=== PATIENT | female | born 1955 | race Two or more races ===

== ENCOUNTER 2017-08-20 13:26 | Outpatient (CLI) | payer OTHER ==
[~2017-08-20 13:26] MED LIST: ADVAIR 2501 DISK W/1 IH; CAPOTEN50 MG PO; COUMADIN4 MG; COZAAR100 MG; FLOVENT DISKU100 MCG IH; GLIPIZIDE5 MG PO; GLUCOTROL10 MG PO; INTESTINEX680 MG PO; KLONOPIN1 MG/TAB PO; LANTUS100 U/ML SQ; LASIX20 MG PO; LEVAQUIN500 MG PO; LIPITOR20 MG PO; LISINOPRIL10 MG; MEDROLPACK PO; METFORMIN HCL500 M1 PO; METFORMIN HCL500 MG PO; PLAVIX75 MG PO; PNEU16DI2; PROAIR HFA8.5 GM IH; SYMBICORT 16010.2 GM IH; SYNTHROID75 MCG PO; VENTOLIN HFA18 GM IH
== END 2017-08-20 13:31 | disposition home or self-care (01) ==
LOC: RAD 501 13:26
DX: M24.521 Contracture, right elbow (principal)

== ENCOUNTER → 2017-12-07 | Outpatient (CLI) | payer OTHER | END | disposition home or self-care (01) | LOC: SONOGRAMA 11:52 | DX: E04.2 Nontoxic multinodular goiter (principal) ==

== ENCOUNTER 2018-02-19 12:12 | Outpatient (CLI) | payer OTHER | END 2018-02-19 12:25 | disposition home or self-care (01) | LOC: RAD 501 12:12 | DX: M15.0 Primary generalized (osteo)arthritis (principal) ==

== ENCOUNTER 2018-06-14 09:19 | Outpatient (CLI) | payer OTHER ==
[~2018-06-14] VITALS: Ht 152.4 cm; Wt 79.8 kg
== END 2018-06-14 09:40 | disposition home or self-care (01) ==
LOC: OFIC 805 09:19
DX: J33.8 Other polyp of sinus (principal); J31.0 Chronic rhinitis; J32.8 Other chronic sinusitis; J34.2 Deviated nasal septum; H90.3 Sensorineural hearing loss, bilateral; H61.23 Impacted cerumen, bilateral

== ENCOUNTER 2018-06-25 19:13 | Inpatient (IN) | payer OTHER ==
[~2018-06-25] VITALS: Ht 149.9 cm; Wt 74.4 kg
[2018-07-01] MEDS ORDERED: QVAR REDIHALE10.6 G1 IH (13:46)
[2018-07-01] MEDS ORDERED: PROVENTIL HFA6.7 GM IH (13:47)
[2018-07-01] MEDS ORDERED: MEDROL4 MG PO (13:49)
[2018-07-01] MEDS ORDERED: ESTAZOLAM2 MG PO (13:53)
== END 2018-07-01 14:09 | disposition home or self-care (01) | DRG 202 ==
LOC: ER 19:13 → SEC-K 06-26 11:00 → MEDJ 06-26 11:00
PROVIDERS: ADMIT Internal Medicine
PROC: 4A033R1 Measurement of Arterial Saturation, Peripheral, Percutaneous Approach (ICD-10-PCS; principal; 2018-06-26)
PROC: 4A033R1 Measurement of Arterial Saturation, Peripheral, Percutaneous Approach (ICD-10-PCS; 2018-06-26)
DX: J45.41 Moderate persistent asthma with (acute) exacerbation (principal); B37.1 Pulmonary candidiasis; J44.1 Chronic obstructive pulmonary disease with (acute) exacerbation; E11.65 Type 2 diabetes mellitus with hyperglycemia; E03.8 Other specified hypothyroidism

== ENCOUNTER → 2018-08-15 | Outpatient (CLI) | payer OTHER ==
[~2018-08-15] MED LIST changes: +ESTAZOLAM2 MG PO; +MEDROL4 MG PO; +PROVENTIL HFA6.7 GM IH; +QVAR REDIHALE10.6 G1 IH
== END | disposition home or self-care (01) ==
LOC: NUCLEAR 09:00
DX: M06.4 Inflammatory polyarthropathy (principal)
CPT/HCPCS: 78306; 78315; A9503

== ENCOUNTER → 2018-08-19 | Outpatient (CLI) | payer OTHER | END | disposition home or self-care (01) | LOC: TOM 10:38 | DX: J33.8 Other polyp of sinus (principal); J32.8 Other chronic sinusitis; J34.2 Deviated nasal septum ==

== ENCOUNTER 2018-08-23 09:13 | Outpatient (CLI) | payer OTHER ==
[~2018-08-23] VITALS: Ht 152.4 cm; Wt 79.8 kg
== END 2018-08-23 09:30 | disposition home or self-care (01) ==
LOC: OFIC 805 09:13
DX: J45.901 Unspecified asthma with (acute) exacerbation (principal); J31.0 Chronic rhinitis; J33.8 Other polyp of sinus

== ENCOUNTER 2018-09-24 15:08 | Inpatient (IN) | payer OTHER ==
[~2018-09-24] VITALS: Ht 149.9 cm; Wt 78.9 kg
[2018-10-01] MEDS ORDERED: BENZONATATE100 MG PO (16:27)
[2018-10-01] MEDS ORDERED: TUSSIN DM LIQU118 ML PO (16:28)
== END 2018-10-01 18:18 | disposition home or self-care (01) | DRG 202 ==
LOC: ER 15:08 → SEC-K 09-25 18:12 → MEDJ 09-25 18:12
PROVIDERS: ADMIT Internal Medicine
PROC: 3E0F7GC Introduction of Other Therapeutic Substance into Respiratory Tract, Via Natural or Artificial Opening (ICD-10-PCS; principal; 2018-09-25)
PROC: BB24ZZZ Computerized Tomography (CT Scan) of Bilateral Lungs (ICD-10-PCS; 2018-09-26)
DX: J45.42 Moderate persistent asthma with status asthmaticus (principal); J44.1 Chronic obstructive pulmonary disease with (acute) exacerbation; J98.11 Atelectasis

== ENCOUNTER 2018-10-20 12:50 | Emergency (ER) | payer OTHER ==
[~2018-10-20] VITALS: Ht 149.9 cm; Wt 78.0 kg
[~2018-10-20 12:50] MED LIST changes: +BENZONATATE100 MG PO; +TUSSIN DM LIQU118 ML PO
== END 2018-10-20 14:23 | disposition home or self-care (01) ==
LOC: ER 12:50
DX: S89.82XA Other specified injuries of left lower leg, initial encounter (principal); S89.81XA Other specified injuries of right lower leg, initial encounter; W18.09XA Striking against other object with subsequent fall, initial encounter; Y93.89 Activity, other specified; Y92.89 Other specified places as the place of occurrence of the external cause; Y99.8 Other external cause status

== ENCOUNTER → 2018-10-30 | Outpatient (CLI) | payer OTHER | END | disposition home or self-care (01) | LOC: NUCLEAR 06-24 08:30 | DX: I87.2 Venous insufficiency (chronic) (peripheral) (principal) ==

== ENCOUNTER → 2018-11-06 | Outpatient (CLI) | payer OTHER | END | disposition home or self-care (01) | LOC: MRI 09:59 | DX: S83.203A Other tear of unspecified meniscus, current injury, right knee, initial encounter (principal) | CPT/HCPCS: 73721 ==

== ENCOUNTER 2018-11-10 14:16 | Emergency (ER) | payer OTHER ==
[~2018-11-10] VITALS: Ht 149.9 cm; Wt 78.9 kg
== END 2018-11-10 17:29 | disposition home or self-care (01) ==
LOC: ER 14:16
DX: L03.115 Cellulitis of right lower limb (principal)

== ENCOUNTER 2019-04-02 14:52 | Inpatient (IN) | payer OTHER ==
[~2019-04-02] VITALS: Ht 149.9 cm; Wt 76.7 kg
[~2019-04-02 14:52] MED LIST changes: -COZAAR100 MG; +COZAAR100 MG PO
== END 2019-05-07 16:31 | DRG 470 ==
LOC: SURG 05-05 07:00 → O/R 05-05 07:05 → SURH 05-05 07:05 → SURG 05-05 10:00 → SURH 05-05 15:06
PROVIDERS: ADMIT Orthopaedic Surgery
PROC: 0SRC0J9 Replacement of Right Knee Joint with Synthetic Substitute, Cemented, Open Approach (ICD-10-PCS; principal; 2019-05-05 07:00)
DX: M17.11 Unilateral primary osteoarthritis, right knee (principal); D62 Acute posthemorrhagic anemia; E72.11 Homocystinuria; I10 Essential (primary) hypertension; E03.8 Other specified hypothyroidism; E11.9 Type 2 diabetes mellitus without complications; Z79.4 Long term (current) use of insulin

== ENCOUNTER 2019-04-09 10:57 | Outpatient (CLI) | payer OTHER ==
[~2019-04-09 10:57] MED LIST changes: +COZAAR100 MG; -COZAAR100 MG PO
== END 2019-04-09 10:59 | disposition home or self-care (01) ==
LOC: RAD 10:57
DX: R07.89 Other chest pain (principal)

== ENCOUNTER 2019-08-28 13:32 | Outpatient (CLI) | payer OTHER ==
[~2019-08-28 13:32] MED LIST changes: -COZAAR100 MG; +COZAAR100 MG PO
== END 2019-08-28 14:17 | disposition home or self-care (01) ==
LOC: RAD 13:32
DX: M25.561 Pain in right knee (principal); M25.562 Pain in left knee

== ENCOUNTER 2020-01-14 09:37 | Outpatient (CLI) | payer OTHER | END 2020-01-14 09:49 | disposition home or self-care (01) | LOC: MAMO-SONO 09:37 | PROVIDERS: ATTEND Internal Medicine | DX: Z12.31 Encounter for screening mammogram for malignant neoplasm of breast (principal); Z87.898 Personal history of other specified conditions; D24.1 Benign neoplasm of right breast; D24.2 Benign neoplasm of left breast ==

== ENCOUNTER → 2020-01-14 09:39 | Outpatient (CLI) | payer OTHER | END | disposition home or self-care (01) | LOC: LAB 09:39 | PROVIDERS: ATTEND Internal Medicine | DX: E03.8 Other specified hypothyroidism (principal); E11.69 Type 2 diabetes mellitus with other specified complication; E46 Unspecified protein-calorie malnutrition; E55.9 Vitamin D deficiency, unspecified; E78.49 Other hyperlipidemia; F39 Unspecified mood [affective] disorder; G63 Polyneuropathy in diseases classified elsewhere; I10 Essential (primary) hypertension; E11.40 Type 2 diabetes mellitus with diabetic neuropathy, unspecified; I73.89 Other specified peripheral vascular diseases ==

== ENCOUNTER 2020-04-26 10:23 | Outpatient (CLI) | payer OTHER | END 2020-04-26 10:33 | disposition home or self-care (01) | LOC: EKG 10:23 | PROVIDERS: ATTEND Internal Medicine | DX: Z01.811 Encounter for preprocedural respiratory examination (principal); I11.9 Hypertensive heart disease without heart failure; Z01.810 Encounter for preprocedural cardiovascular examination; J44.1 Chronic obstructive pulmonary disease with (acute) exacerbation ==

== ENCOUNTER 2020-08-26 12:37 | Outpatient (CLI) | payer OTHER | END 2020-08-26 12:43 | disposition HB | LOC: RAD 12:37 | PROVIDERS: ATTEND Internal Medicine | DX: M12.561 Traumatic arthropathy, right knee (principal); M65.861 Other synovitis and tenosynovitis, right lower leg ==

== ENCOUNTER 2020-12-07 10:21 | Outpatient (CLI) | payer OTHER | END 2020-12-07 10:22 | disposition home or self-care (01) | LOC: NUCLEAR 10:21 | PROVIDERS: ATTEND Internal Medicine | DX: I70.213 Atherosclerosis of native arteries of extremities with intermittent claudication, bilateral legs (principal) ==

== ENCOUNTER 2021-03-30 13:33 | Emergency (ER) | payer OTHER ==
[~2021-03-30] VITALS: Ht 144.8 cm; Wt 82.6 kg
[2021-03-30] MEDS ORDERED: SYNTHROID88 MCG PO (13:46)
[2021-03-30] MEDS ORDERED: FENOFIBRATE50 MG (13:59)
[2021-03-30] MEDS ORDERED: LIPITOR20 MG PO (13:59)
== END 2021-03-31 13:18 | disposition home or self-care (01) ==
LOC: ER 13:33
DX: L03.115 Cellulitis of right lower limb (principal); L03.116 Cellulitis of left lower limb; R51.9 Headache, unspecified; I82.493 Acute embolism and thrombosis of other specified deep vein of lower extremity, bilateral; Z20.822 Contact with and (suspected) exposure to COVID-19

== ENCOUNTER 2021-04-27 09:24 | Outpatient (CLI) | payer OTHER ==
[~2021-04-27 09:24] MED LIST changes: +FENOFIBRATE50 MG; +SYNTHROID88 MCG PO
== END 2021-04-27 09:34 | disposition home or self-care (01) ==
LOC: MRI 09:24
PROVIDERS: ATTEND Orthopaedic Surgery
DX: M17.12 Unilateral primary osteoarthritis, left knee (principal); M25.561 Pain in right knee; M25.562 Pain in left knee
CPT/HCPCS: 73721

== ENCOUNTER 2021-11-18 09:19 | Outpatient (CLI) | payer OTHER | END 2021-11-18 09:21 | disposition home or self-care (01) | LOC: RAD 09:19 | PROVIDERS: ATTEND Internal Medicine | DX: Z12.31 Encounter for screening mammogram for malignant neoplasm of breast (principal); N63.0 Unspecified lump in unspecified breast; M54.2 Cervicalgia; M54.50 Low back pain, unspecified; M54.6 Pain in thoracic spine ==

== ENCOUNTER 2021-11-29 14:49 | Emergency (ER) | payer OTHER ==
[~2021-11-29] VITALS: Ht 152.4 cm; Wt 95.3 kg
[2021-11-29] MEDS ORDERED: ATORVASTATIN CA40 MG (15:36)
[2021-11-29] MEDS ORDERED: CEPHALEXIN500 M1 PO (21:12)
== END 2021-11-29 21:16 | disposition home or self-care (01) ==
LOC: ER 14:49
DX: L03.116 Cellulitis of left lower limb (principal); L03.115 Cellulitis of right lower limb; M79.662 Pain in left lower leg; M79.661 Pain in right lower leg; Z88.6 Allergy status to analgesic agent; I10 Essential (primary) hypertension

== ENCOUNTER 2021-12-23 13:13 | Emergency (ER) | payer OTHER ==
[~2021-12-23] VITALS: Ht 149.9 cm; Wt 88.5 kg
[~2021-12-23 13:13] MED LIST changes: +ATORVASTATIN CA40 MG; +CEPHALEXIN500 M1 PO
== END 2021-12-23 18:00 | disposition home or self-care (01) ==
LOC: ER 13:13
DX: S20.212A Contusion of left front wall of thorax, initial encounter (principal); M62.838 Other muscle spasm; S80.02XA Contusion of left knee, initial encounter; S80.01XA Contusion of right knee, initial encounter; W18.30XA Fall on same level, unspecified, initial encounter; Y93.9 Activity, unspecified; Y92.019 Unspecified place in single-family (private) house as the place of occurrence of the external cause; Y99.9 Unspecified external cause status; I10 Essential (primary) hypertension; E03.9 Hypothyroidism, unspecified; E11.65 Type 2 diabetes mellitus with hyperglycemia; Z79.4 Long term (current) use of insulin

== ENCOUNTER 2022-01-09 07:07 | Emergency (ER) | payer OTHER ==
[~2022-01-09] VITALS: Ht 149.9 cm; Wt 85.7 kg
[2022-01-09] MEDS ORDERED: GLUMETZA500 MG PO (07:17)
== END 2022-01-09 10:03 | disposition home or self-care (01) ==
LOC: ER 07:07
DX: S91.129A Laceration with foreign body of unspecified toe(s) without damage to nail, initial encounter (principal); Z88.6 Allergy status to analgesic agent; Z86.711 Personal history of pulmonary embolism; I10 Essential (primary) hypertension; Z86.718 Personal history of other venous thrombosis and embolism

== ENCOUNTER 2022-06-15 14:28 | Outpatient (CLI) | payer OTHER ==
[~2022-06-15 14:28] MED LIST changes: +GLUMETZA500 MG PO
== END 2022-06-15 14:29 | disposition home or self-care (01) ==
LOC: RAD 14:28
PROVIDERS: ATTEND Internal Medicine
DX: S80.912A Unspecified superficial injury of left knee, initial encounter (principal)

== ENCOUNTER 2022-08-09 13:53 | Outpatient (CLI) | payer OTHER | END 2022-08-09 14:04 | disposition home or self-care (01) | LOC: MRI 13:53 | PROVIDERS: ATTEND Orthopaedic Surgery | DX: M25.562 Pain in left knee (principal) | CPT/HCPCS: 73718 ==

== ENCOUNTER 2022-09-27 16:07 | Emergency (ER) | payer OTHER ==
[~2022-09-27] VITALS: Ht 149.9 cm; Wt 79.4 kg
== END 2022-09-27 20:38 | disposition home or self-care (01) ==
LOC: ER 16:07
DX: M79.604 Pain in right leg (principal); L03.115 Cellulitis of right lower limb; Z88.6 Allergy status to analgesic agent; I10 Essential (primary) hypertension; E11.9 Type 2 diabetes mellitus without complications; Z79.4 Long term (current) use of insulin; Z79.84 Long term (current) use of oral hypoglycemic drugs

== ENCOUNTER 2023-01-23 17:38 | Emergency (ER) | payer OTHER ==
[~2023-01-23] VITALS: Ht 149.9 cm; Wt 74.8 kg
== END 2023-01-23 22:47 | disposition home or self-care (01) ==
LOC: ER 17:38
DX: R60.0 Localized edema (principal); I10 Essential (primary) hypertension; Z88.6 Allergy status to analgesic agent

== ENCOUNTER → 2023-03-15 | Emergency (ER) | payer OTHER ==
[~2023-03-15] VITALS: Ht 149.9 cm; Wt 79.4 kg
== END | disposition home or self-care (01) ==
LOC: ER 13:53
DX: J06.9 Acute upper respiratory infection, unspecified (principal); Z20.822 Contact with and (suspected) exposure to COVID-19; Z88.6 Allergy status to analgesic agent

== ENCOUNTER 2024-02-05 09:22 | Outpatient (CLI) | payer OTHER ==
[~2024-02-05 09:22] MED LIST changes: +GLIPIZIDE XL10 MG PO; +METFORMIN HCL1000 M2 PO; +SYNTHROID100 MCG PO; +WARFARIN SODIUM5 MG PO
== END 2024-02-05 09:24 | disposition home or self-care (01) ==
LOC: RAD 09:22
DX: Z01.811 Encounter for preprocedural respiratory examination (principal)

== ENCOUNTER 2024-02-05 10:14 | Outpatient (CLI) | payer OTHER | END 2024-02-05 10:23 | disposition home or self-care (01) | LOC: EKG 10:14 | PROVIDERS: ATTEND Ophthalmology | DX: I10 Essential (primary) hypertension (principal) ==

== ENCOUNTER 2024-03-31 11:45 | Outpatient (CLI) | payer OTHER | END 2024-03-31 11:46 | disposition home or self-care (01) | LOC: RAD 11:45 | PROVIDERS: ATTEND Physical Medicine & Rehabilitation | DX: M54.2 Cervicalgia (principal) ==

== ENCOUNTER 2024-06-30 08:42 | Outpatient (CLI) | payer OTHER | END 2024-06-30 08:43 | disposition home or self-care (01) | LOC: NUCLEAR 08:42 | PROVIDERS: ATTEND Internal Medicine | DX: I87.2 Venous insufficiency (chronic) (peripheral) (principal) ==

== ENCOUNTER 2024-10-11 11:39 | Inpatient (IN) | payer OTHER ==
[~2024-10-11] VITALS: Ht 149.9 cm; Wt 77.1 kg
--- NOTE | 2024-10-11 11:52 | NUR ---
SE RECIBE PACIENTE EN AMBULANCIA ALERTA, ORIENTADA EN COMPANIA DE [place]. REFIERE VENIR POR MOHANEOS, MARITZA, VERONIQUEOR DE OIDO.
[2024-10-11] MEDS ORDERED: TRAMADOL HCL 50 MG TABLET PO ONE (13:15)
[2024-10-11] MEDS ORDERED: METHYLPREDNISOLONE SOD SUCC 40 MG VIAL IV ONE (13:15)
[2024-10-11] MEDS ORDERED: CIPROFLOXACIN IN 5 % DEXTROSE 400 MG/200 ML PIGGYBAG IV ONE ×2 (13:15→13:30)
[2024-10-11] MEDS ORDERED: METHYLPREDNISOLONE SOD SUCC 40 MG VIAL ONE (13:30)
--- NOTE | 2024-10-11 14:04 | NUR ---
PACIENTE ALERTA Y ORIENTADA X3. SE EDUCA A PACIENTE SOBRE CANALIZACION Y ADMINISTRACION DE MEDICAMENTOS, REFIERE ENTENDER. SE EJECUTAN ORDENES BAJO MEDIDAS ASEPTICAS.
--- NOTE | 2024-10-11 16:36 | NUR ---
4:15PM: AL PACIENTE SER IVET DE GILMAR LA MISMA SE TROPEZA CON LA SILLA DE FAMILIAR Y SE FEDERICO AL SUELO. SE OBSERVA LA MISMA EN GRITOS POR EL DOLOR LA MISMA REFIERE DOLOR EN LA CADERA IZQUIERDA Y PIERNA. CON ASISTENCIA DE PARAMEDICOS QUE SE ENCONTRABAN DEJANDO PACIENTE. SE COLOCA LA MISMA EN MOSHE Y SE NOTIFICA A DR. ARNOLD Y EL MISMO ORDENA TRATAMIENTO MEDICO.
[2024-10-11] MEDS ORDERED: MORPHINE SULFATE 4 MG/ML CARTRIDGE IV ONE (17:30)
--- NOTE | 2024-10-11 17:59 | NUR ---
SE EDUCA A PTE SOBRE [place] MEDICO, SE DULCE MUESTRAS DE LABORATORIO UTILIZANDO MEDIDAS ASEPTICAS. SE COLOCA H/L DWAYNE DE EDEMA. SE ADMINISTRA MEDICAMENTO KWADWO ORDEN MEDICA. SE COLOCA LUA A PTE UTILIZANDO MEDIDAS ASEPTICAS Y ESTERILES.
[2024-10-11 18:44] LABS: URINE APPEARANCE Clear; URINE BILIRRUBIN Negative (NEGATIVE); URINE BLOOD Negative; URINE COLOR Yellow; URINE KETONE Negative (NEGATIVE); URINE LEUKOCYTE Negative; URINE NITRATE Negative; URINE PROTEIN 30 (NEGATIVE); URINE UROBILINOGEN 0.2 E.U./dl
[2024-10-11 18:50] LABS: URINE BACTERIA 7.3 uL (0.0-1933); URINE EPITHELIAL CELLS 3.4 uL (0.0-38.8); URINE RBC 21.6 uL (0.0-20.8); URINE WBC 3.3 uL (0.0-23.2)
[2024-10-11 19:00] LABS: URINE CAST 0.14 uL (0.0-1.40); URINE GLUCOSE >=1000 MG/DL (NEGATIVE)
[2024-10-11 19:08] LABS: BILIRUBIN TOTAL 0.96 mg/dL (0.3-1.2); CALCIUM 9.2 mg/dL (8.5-10.1); CREATININE SERUM 0.57 mg/dL (0.55-1.02); GFR 105.17; GLOBULINA 5.4 G/DL (2.4-3.5); POTASSIUM 3.94 mEq/L (3.5-5.1); TOTAL PROTEIN 9.4 gm/dL (6.4-8.2)
[2024-10-11 19:15] LABS: INR 6.42
[2024-10-11] MEDS ORDERED: DEXTROSE 50 % IN WATER 0.5 G/ML DISP.SYRIN IV PRN (19:30)
[2024-10-11] MEDS ORDERED: INSULIN LISPRO 1,000 UNIT/10 ML UNITS SUBCUTANEO PRN (19:30)
[2024-10-11] MEDS ORDERED: 0.9 % SODIUM CHLORIDE 1,000 ML IV SCH (19:30)
[2024-10-11] MEDS ORDERED: MORPHINE SULFATE 4 MG/ML CARTRIDGE IV PRN (19:30)
[2024-10-11 19:40] LABS: HEMOGLOBIN 15.3 g/dL (12.0-15.00); MEAN CELL VOLUME 85.9 fL (80.00-100.00); MEAN CORPUSCULAR HGB CONC 32.6 g/dl (32.0-36.0); PLATELET COUNT 200 K/uL (150-450); RED BLOOD COUNT 5.47 M/uL (4.00-6.00); RED CELL DISTRIBUTION WIDTH 14.6 % (11.5-14.5)
[2024-10-11] MEDS ORDERED: LOSARTAN POTASSIUM 100 MG TABLET PO SCH (19:56)
[2024-10-11] MEDS ORDERED: ATORVASTATIN CALCIUM 40 MG TABLET PO SCH (19:57)
[2024-10-11] MEDS ORDERED: CEFTRIAXONE SODIUM 1,000 MG in 0.9 % SODIUM CHLORIDE 100 ML IV SCH (21:00)
[2024-10-11] MEDS ORDERED: CEFTRIAXONE SODIUM 1,000 MG VIAL ONE (21:29)
[2024-10-11 21:43] VITALS: BP 160/82; O2SAT 95
[2024-10-11] MEDS ORDERED: ENALAPRILAT DIHYDRATE 1.25 MG/ML VIAL IV PRN (22:30)
[2024-10-12] VITALS: BP 89/55; O2SAT 95
[2024-10-12 00:38] VITALS: BP 109/61; O2SAT 97
[2024-10-12 01:54] VITALS: BP 147/81; O2SAT 94
[2024-10-12] MEDS ORDERED: LEVOTHYROXINE SODIUM 88 MCG TABLET PO SCH (06:00)
[2024-10-12 07:25] LABS: INR 4.33
[2024-10-12 07:31] LABS: ALBUMIN 2.9 gm/dL (3.4-5.0); BILIRUBIN TOTAL 0.63 mg/dL (0.3-1.2); CALCIUM 8.1 mg/dL (8.5-10.1); CREATININE SERUM 0.67 mg/dL (0.55-1.02); GFR 87.27; GLOBULINA 3.6 G/DL (2.4-3.5); POTASSIUM 4.07 mEq/L (3.5-5.1); TOTAL PROTEIN 6.5 gm/dL (6.4-8.2)
[2024-10-12 07:43] LABS: HEMATOCRIT 34.5 % (36.0-45.00); HEMOGLOBIN 11.5 g/dL (12.0-15.00); MEAN CELL VOLUME 83.9 fL (80.00-100.00); MEAN CORPUSCULAR HEMOGLOBIN 28.1 pg (27.00-32.0); MEAN CORPUSCULAR HGB CONC 33.5 g/dl (32.0-36.0); PLATELET COUNT 269 K/uL (150-450); RED BLOOD COUNT 4.11 M/uL (4.00-6.00); RED CELL DISTRIBUTION WIDTH 14.4 % (11.5-14.5)
[2024-10-12 08:00] VITALS: BP 141/71; O2SAT 99
[2024-10-12 08:19] LABS: PARTIAL THROMBOPLASTIN TIME 46.1 SECONDS (22.0-34.0)
[2024-10-12 08:22] LABS: PROTHROMBIN TIME 42.3 SECONDS (9.0-11.5)
[2024-10-12] MEDS ORDERED: PANTOPRAZOLE SODIUM 40 MG/VIAL VIAL IV SCH (09:00)
[2024-10-12] MEDS ORDERED: ENOXAPARIN SODIUM 40 MG/0.4 ML SYRINGE SUBCUTANEO SCH (09:00)
[2024-10-12] MEDS ORDERED: INSULIN GLARGINE,HUM.REC.ANLOG 1,000 UNITS/10 ML UNITS SUBCUTANEO STA (11:10)
[2024-10-12] MEDS ORDERED: INSULIN LISPRO 1,000 UNIT/10 ML UNITS SUBCUTANEO SCH (12:00)
[2024-10-12] MEDS ORDERED: 0.9 % SODIUM CHLORIDE 1,000 ML IV SCH (12:15)
[2024-10-12] MEDS ORDERED: CEFAZOLIN SODIUM 1,000 MG VIAL IV NR (12:15)
[2024-10-12] MEDS ORDERED: PROMETHAZINE HCL 50 MG/ML AMPUL IM PRN (12:15)
[2024-10-12] MEDS ORDERED: OxyCODONE HCL/APAP UD (PERCOCET) PO PRN (12:15)
[2024-10-12] MEDS ORDERED: MEPERIDINE HCL/PF 50 MG/ML VIAL IM PRN (12:15)
[2024-10-12 14:08] LABS: PH,URINE 5.5 (5.0-8.0); URINE APPEARANCE Clear; URINE BILIRRUBIN Negative (NEGATIVE); URINE BLOOD Large; URINE COLOR Yellow; URINE KETONE Trace (NEGATIVE); URINE LEUKOCYTE Negative; URINE NITRATE Negative; URINE PROTEIN Trace (NEGATIVE)
[2024-10-12 14:09] LABS: URINE BACTERIA 41.6 uL (0.0-1933); URINE EPITHELIAL CELLS 17.8 uL (0.0-38.8); URINE RBC 312.7 uL (0.0-20.8); URINE WBC 23.8 uL (0.0-23.2)
[2024-10-12 14:33] LABS: INR 4.35; PARTIAL THROMBOPLASTIN TIME 35.6 SECONDS (22.0-34.0)
[2024-10-12 14:39] LABS: PROTHROMBIN TIME 42.5 SECONDS (9.0-11.5)
[2024-10-12 14:41] LABS: URINE CAST 0.44 uL (0.0-1.40)
[2024-10-12 14:42] LABS: URINE GLUCOSE >=1000 MG/DL (NEGATIVE)
[2024-10-12 14:49] LABS: URINE EPITHELIAL CELLS 0-4 /HPF
[2024-10-12 15:00] LABS: CALCIUM 8.1 mg/dL (8.5-10.1); MAGNESIUM 1.7 mg/dL (1.8-2.4); PHOSPHOROUS 3.6 mg/dL (2.5-4.9)
[2024-10-12] MEDS ORDERED: RINGERS SOLUTION,LACTATED 1,000 ML IV SCH (15:45)
[2024-10-12 16:00] VITALS: BP 109/59; O2SAT 99
[2024-10-12] MEDS ORDERED: MAGNESIUM SULFATE IN WATER 50 ML IV NR (16:30)
[2024-10-12] MEDS ORDERED: CEFEPIME HCL 2,000 MG in 0.9 % SODIUM CHLORIDE 100 ML IV SCH (17:00)
[2024-10-12] MEDS ORDERED: AMINO ACIDS 1 EACH TABLET PO SCH (17:00)
[2024-10-12] MEDS ORDERED: IRON FUM,PS/FOLIC/BCOMP,C NO.9 1 CAP CAPSULE PO SCH (17:00)
[2024-10-13] VITALS: BP 134/61; O2SAT 95
[2024-10-13 08:00] VITALS: BP 164/69; O2SAT 99
[2024-10-13 08:08] LABS: INR 3.12
[2024-10-13 08:34] LABS: PARTIAL THROMBOPLASTIN TIME 37.6 SECONDS (22.0-34.0)
[2024-10-13] MEDS ORDERED: ENOXAPARIN SODIUM 80 MG/0.8 ML SYRINGE SUBCUTANEO SCH (09:00)
[2024-10-13] MEDS ORDERED: INSULIN GLARGINE,HUM.REC.ANLOG 1,000 UNITS/10 ML UNITS SUBCUTANEO SCH (09:00)
[2024-10-13 09:29] LABS: PROTHROMBIN TIME 31.3 SECONDS (9.0-11.5)
[2024-10-13] MEDS ORDERED: METHYLPREDNISOLONE SOD SUCC 40 MG VIAL ONE (09:45)
[2024-10-13] MEDS ORDERED: DIPHENHYDRAMINE HCL 50 MG/ML VIAL 1ML ONE (09:47)
[2024-10-13] MEDS ORDERED: PHYTONADIONE 10 MG/ML AMPUL IV NR (13:00)
[2024-10-13] MEDS ORDERED: AMLODIPINE BESYLATE 5 MG TABLET PO SCH (17:00)
[2024-10-13] MEDS ORDERED: GABAPENTIN 300 MG CAPSULE PO SCH (17:00)
[2024-10-13 17:41] VITALS: BP 176/79; O2SAT 94
[2024-10-13] MEDS ORDERED: PHYTONADIONE 1 MG/0.5 ML AMPUL IV NR (18:30)
[2024-10-13] MEDS ORDERED: CIPROFLOXACIN HCL 0.175 MG/DR DROPS OTIC SCH (21:00)
[2024-10-13 23:55] VITALS: BP 139/65; O2SAT 95
[2024-10-14 08:00] VITALS: BP 130/74; O2SAT 99
[2024-10-14 11:34] LABS: HEMATOCRIT 31.8 % (36.0-45.00); HEMOGLOBIN 10.5 g/dL (12.0-15.00); MEAN CELL VOLUME 85.4 fL (80.00-100.00); MEAN CORPUSCULAR HEMOGLOBIN 28.2 pg (27.00-32.0); PLATELET COUNT 220 K/uL (150-450); RED BLOOD COUNT 3.72 M/uL (4.00-6.00); RED CELL DISTRIBUTION WIDTH 14.4 % (11.5-14.5)
[2024-10-14 11:56] LABS: INR 1.04; PARTIAL THROMBOPLASTIN TIME 25.5 SECONDS (22.0-34.0); PROTHROMBIN TIME 11.3 SECONDS (9.0-11.5)
[2024-10-14 12:53] LABS: ALBUMIN 3.3 gm/dL (3.4-5.0); BILIRUBIN TOTAL 0.96 mg/dL (0.3-1.2); CALCIUM 8.8 mg/dL (8.5-10.1); CREATININE SERUM 0.46 mg/dL (0.55-1.02); GFR 134.69; GLOBULINA 4.3 G/DL (2.4-3.5); PHOSPHOROUS 2.2 mg/dL (2.5-4.9); POTASSIUM 4.22 mEq/L (3.5-5.1); TOTAL PROTEIN 7.6 gm/dL (6.4-8.2)
[2024-10-14 12:59] LABS: MAGNESIUM 2.3 mg/dL (1.8-2.4)
[2024-10-14] MEDS ORDERED: TRANEXAMIC ACID 100MG/1ML (1000MG) AMPUL IV ONE ×3 (15:53→16:45)
[2024-10-14] MEDS ORDERED: POVIDONE-IODINE 118 ML BOTT TOP ONE (15:53)
[2024-10-14] MEDS ORDERED: ENALAPRILAT DIHYDRATE 1.25 MG/ML VIAL IV ONE ×3 (16:49→17:00)
[2024-10-14] MEDS ORDERED: hydrALAZINE HCL 20 MG VIAL ONE (17:26)
[2024-10-14] MEDS ORDERED: SUGAMMADEX SODIUM 200 MG/2 ML VIAL IV ONE ×2 (19:33→20:30)
[2024-10-14] MEDS ORDERED: MORPHINE SULFATE 4 MG/ML VIAL IV ONE (20:50)
[2024-10-14] MEDS ORDERED: OxyCODONE HCL 5 MG TABLET (ROXICODONE) PO PRN (21:15)
[2024-10-14] MEDS ORDERED: MORPHINE SULFATE 4 MG/ML CARTRIDGE IV PRN (21:15)
[2024-10-14] MEDS ORDERED: ONDANSETRON HCL 2 MG/ML VIAL IV PRN (21:15)
[2024-10-14] MEDS ORDERED: SODIUM CHLORIDE 0.45 % 1,000 ML IV SCH (21:15)
[2024-10-14] MEDS ORDERED: INSULIN LISPRO 1,000 UNIT/10 ML UNITS SUBCUTANEO ONE (21:17)
[2024-10-15] VITALS: BP 98/62; O2SAT 95
[2024-10-15] MEDS ORDERED: ACETAMINOPHEN 500 MG GEL..CAP PO SCH
[2024-10-15] MEDS ORDERED: GABAPENTIN 300 MG CAPSULE PO SCH (01:00)
[2024-10-15] MEDS ORDERED: CEFAZOLIN SODIUM 1,000 MG VIAL IV SCH (01:00)
[2024-10-15 07:40] LABS: MEAN CELL VOLUME 84.7 fL (80.00-100.00); MEAN CORPUSCULAR HGB CONC 34.7 g/dl (32.0-36.0); PLATELET COUNT 283 K/uL (150-450); RED BLOOD COUNT 2.83 M/uL (4.00-6.00); RED CELL DISTRIBUTION WIDTH 14.6 % (11.5-14.5)
[2024-10-15 07:43] LABS: HEMOGLOBIN 8.3 g/dL (12.0-15.00); MEAN CORPUSCULAR HEMOGLOBIN 29.3 pg (27.00-32.0)
[2024-10-15] MEDS ORDERED: SENNOSIDES 1 TAB TABLET PO SCH (09:00)
[2024-10-15] MEDS ORDERED: APIXABAN 2.5 MG TABLET PO SCH (09:00)
[2024-10-15 10:14] VITALS: BP 109/54; O2SAT 98
[2024-10-15 17:22] VITALS: BP 106/55; O2SAT 97
[2024-10-16 00:57] VITALS: BP 116/67; O2SAT 94
[2024-10-16] MEDS ORDERED: IRON FUM,PS/FOLIC ACID/VITC/B3 1 CAP CAPSULE PO SCH (09:00)
[2024-10-16] MEDS ORDERED: PANTOPRAZOLE SODIUM 40 MG TABLET.DR PO SCH (09:00)
[2024-10-16] MEDS ORDERED: APIXABAN 5 MG TABLET PO SCH (09:00)
[2024-10-16 10:12] VITALS: BP 134/65; O2SAT 100
[2024-10-16 16:00] VITALS: BP 139/79; O2SAT 99
[2024-10-16 19:33] LABS: ALBUMIN 2.7 gm/dL (3.4-5.0); BILIRUBIN TOTAL 1.55 mg/dL (0.3-1.2); CALCIUM 8.5 mg/dL (8.5-10.1); CREATININE SERUM 0.5 mg/dL (0.55-1.02); GFR 122.33; GLOBULINA 4.1 G/DL (2.4-3.5); POTASSIUM 4.47 mEq/L (3.5-5.1); TOTAL PROTEIN 6.8 gm/dL (6.4-8.2)
[2024-10-16 19:49] LABS: PHOSPHOROUS 1.7 mg/dL (2.5-4.9)
[2024-10-16 20:27] LABS: MEAN CELL VOLUME 86.5 fL (80.00-100.00); MEAN CORPUSCULAR HGB CONC 32.3 g/dl (32.0-36.0); PLATELET COUNT 278 K/uL (150-450); RED BLOOD COUNT 2.65 M/uL (4.00-6.00); RED CELL DISTRIBUTION WIDTH 14.8 % (11.5-14.5)
[2024-10-16 20:33] LABS: MEAN CORPUSCULAR HEMOGLOBIN 27.9 pg (27.00-32.0)
[2024-10-16 20:44] LABS: HEMATOCRIT 22.9 % (36.0-45.00); HEMOGLOBIN 7.4 g/dL (12.0-15.00)
[2024-10-17] VITALS (21 sets, daily range): BP systolic 132–176; BP diastolic 42–99; O2SAT 97–100
[2024-10-17] MEDS ORDERED: [UNRECOGNIZED DRUG - OTHER] IV SCH (05:00)
[2024-10-17] MEDS ORDERED: SODIUM PHOSPHATE IV SCH (05:00)
[2024-10-17] MEDS ORDERED: AMIODARONE HCL 900 MG in DEXTROSE 5 % IN WATER 500 ML IV SCH (07:30)
[2024-10-17] MEDS ORDERED: INSULIN GLARGINE,HUM.REC.ANLOG 1,000 UNITS/10 ML UNITS SUBCUTANEO SCH (09:00)
[2024-10-17] MEDS ORDERED: FUROsemide 20 MG/2 ML VIAL IV SCH (14:30)
[2024-10-17] MEDS ORDERED: AMINO ACIDS/PROTEIN HYDROLYS 30 ML BLIST.PACK PO SCH (17:00)
[2024-10-18] VITALS (22 sets, daily range): BP systolic 130–191; BP diastolic 56–85; O2SAT 91–100
[2024-10-18 11:42] LABS: HEMATOCRIT 26.9 % (36.0-45.00); MEAN CELL VOLUME 85.8 fL (80.00-100.00); MEAN CORPUSCULAR HGB CONC 34.2 g/dl (32.0-36.0); PLATELET COUNT 245 K/uL (150-450); RED BLOOD COUNT 3.13 M/uL (4.00-6.00); RED CELL DISTRIBUTION WIDTH 14.6 % (11.5-14.5)
[2024-10-18 11:44] LABS: MEAN CORPUSCULAR HEMOGLOBIN 29.3 pg (27.00-32.0)
[2024-10-18 11:45] LABS: HEMOGLOBIN 9.2 g/dL (12.0-15.00)
[2024-10-18] MEDS ORDERED: NIFEDIPINE 30 MG TAB.SA.OSM PO SCH (12:00)
[2024-10-18 12:16] LABS: CALCIUM 7.8 mg/dL (8.5-10.1); CREATININE SERUM 0.42 mg/dL (0.55-1.02); GFR 149.59; GLOBULINA 3.5 G/DL (2.4-3.5); MAGNESIUM 1.5 mg/dL (1.8-2.4); POTASSIUM 3.71 mEq/L (3.5-5.1); TOTAL PROTEIN 5.5 gm/dL (6.4-8.2)
[2024-10-18 12:26] LABS: PHOSPHOROUS 1.6 mg/dL (2.5-4.9)
[2024-10-18] MEDS ORDERED: INSULIN LISPRO 1,000 UNIT/10 ML UNITS SUBCUTANEO SCH (12:33)
[2024-10-18] MEDS ORDERED: POTASSIUM PHOS,M-BASIC-D-BASIC 15 MM in 0.9 % SODIUM CHLORIDE 250 ML IV ONE (16:00)
[2024-10-18] MEDS ORDERED: INSULIN GLARGINE,HUM.REC.ANLOG 1,000 UNITS/10 ML UNITS SUBCUTANEO SCH (21:00)
[2024-10-19] VITALS (11 sets, daily range): BP systolic 122–151; BP diastolic 61–85; O2SAT 90–100
[2024-10-19 08:14] LABS: CALCIUM 8.3 mg/dL (8.5-10.1); CREATININE SERUM 0.42 mg/dL (0.55-1.02); GFR 149.59; MAGNESIUM 1.7 mg/dL (1.8-2.4); POTASSIUM 4.5 mEq/L (3.5-5.1)
[2024-10-19 08:31] LABS: HEMATOCRIT 32.4 % (36.0-45.00); HEMOGLOBIN 10.9 g/dL (12.0-15.00); MEAN CELL VOLUME 88.5 fL (80.00-100.00); MEAN CORPUSCULAR HEMOGLOBIN 29.7 pg (27.00-32.0); MEAN CORPUSCULAR HGB CONC 33.5 g/dl (32.0-36.0); RED BLOOD COUNT 3.66 M/uL (4.00-6.00); RED CELL DISTRIBUTION WIDTH 14.8 % (11.5-14.5)
[2024-10-19 08:37] LABS: PLATELET COUNT 235 K/uL (150-450)
[2024-10-19] MEDS ORDERED: POLYETHYLENE GLYCOL 3350 17 GM BLIST.PACK PO SCH (10:20)
[2024-10-19] MEDS ORDERED: AMIODARONE HCL 200 MG TABLET PO NR (11:00)
[2024-10-19] MEDS ORDERED: INSULIN LISPRO 1,000 UNIT/10 ML UNITS SUBCUTANEO SCH (17:00)
[2024-10-19] MEDS ORDERED: AMIODARONE HCL 200 MG TABLET PO SCH (17:00)
[2024-10-19] MEDS ORDERED: INSULIN GLARGINE,HUM.REC.ANLOG 1,000 UNITS/10 ML UNITS SUBCUTANEO SCH (21:00)
[2024-10-20] VITALS: BP 171/94; O2SAT 95
[2024-10-20 01:19] VITALS: O2SAT 98
[2024-10-20 06:14] VITALS: O2SAT 98
[2024-10-20 08:07] VITALS: BP 133/55; O2SAT 97
[2024-10-20 09:25] VITALS: O2SAT 96
[2024-10-20] MEDS ORDERED: POLYETHYLENE GLYCOL 3350 17 GM BLIST.PACK PO STA (10:48)
[2024-10-20] MEDS ORDERED: CEFEPIME HCL 2,000 MG VIAL IV SCH (13:00)
[2024-10-20] MEDS ORDERED: MINERAL OIL 30 ML BLIST.PACK PO STA (13:37)
[2024-10-20] MEDS ORDERED: MAGNESIUM HYDROXIDE 400 MG/5 ML ML PO STA (13:37)
[2024-10-20] MEDS ORDERED: LACTULOSE 20 G/30 ML BLIST.PACK PO STA (13:37)
[2024-10-20] MEDS ORDERED: MAGNESIUM HYDROXIDE 30 ML BLIST.PACK PO STA (13:44)
[2024-10-20] MEDS ORDERED: MINERAL OIL 133 ML ENEMA RECTAL NR (13:45)
[2024-10-20] MEDS ORDERED: ALPRAzolam 0.5 MG TABLET PO PRN (15:30)
[2024-10-20 16:21] VITALS: BP 109/75; O2SAT 95
[2024-10-20] MEDS ORDERED: POLYETHYLENE GLYCOL 3350 17 GM BLIST.PACK PO SCH (17:00)
[2024-10-20] MEDS ORDERED: INSULIN GLARGINE,HUM.REC.ANLOG 1,000 UNITS/10 ML UNITS SUBCUTANEO SCH (21:00)
[2024-10-20] MEDS ORDERED: WARFARIN SODIUM 2 MG TABLET PO SCH (21:00)
[2024-10-20] MEDS ORDERED: ENOXAPARIN SODIUM 80 MG/0.8 ML SYRINGE SUBCUTANEO SCH (21:00)
[2024-10-21 00:15] VITALS: BP 133/78; O2SAT 96
[2024-10-21 08:28] VITALS: BP 134/76; O2SAT 96
[2024-10-21 11:30] LABS: HEMATOCRIT 32.2 % (36.0-45.00); HEMOGLOBIN 10.5 g/dL (12.0-15.00); MEAN CELL VOLUME 88.7 fL (80.00-100.00); MEAN CORPUSCULAR HEMOGLOBIN 28.9 pg (27.00-32.0); MEAN CORPUSCULAR HGB CONC 32.6 g/dl (32.0-36.0); PLATELET COUNT 387 K/uL (150-450); RED BLOOD COUNT 3.62 M/uL (4.00-6.00); RED CELL DISTRIBUTION WIDTH 15.1 % (11.5-14.5)
[2024-10-21 12:20] LABS: ALBUMIN 2.1 gm/dL (3.4-5.0); BILIRUBIN TOTAL 1.51 mg/dL (0.3-1.2); CALCIUM 8.3 mg/dL (8.5-10.1); CREATININE SERUM 0.38 mg/dL (0.55-1.02); GFR 167.91; GLOBULINA 3.8 G/DL (2.4-3.5); PHOSPHOROUS 2.8 mg/dL (2.5-4.9); POTASSIUM 4.81 mEq/L (3.5-5.1); TOTAL PROTEIN 5.9 gm/dL (6.4-8.2)
[2024-10-21 15:30] VITALS: BP 160/97; O2SAT 99
[2024-10-21 17:20] VITALS: O2SAT 98
[2024-10-21 21:43] VITALS: O2SAT 98
[2024-10-22 00:22] VITALS: BP 122/69; O2SAT 97
[2024-10-22 00:34] VITALS: O2SAT 98
[2024-10-22 05:00] VITALS: O2SAT 99
[2024-10-22 08:46] VITALS: BP 150/70; O2SAT 98
[2024-10-22 08:46] LABS: INR 1.05; PARTIAL THROMBOPLASTIN TIME 29.5 SECONDS (22.0-34.0)
[2024-10-22 09:02] LABS: PROTHROMBIN TIME 11.4 SECONDS (9.0-11.5)
[2024-10-22 10:06] VITALS: O2SAT 100
[2024-10-22 13:49] VITALS: O2SAT 90
[2024-10-22] MEDS ORDERED: PANTOPRAZOLE SO40 MG PO (14:39)
[2024-10-22] MEDS ORDERED: GABAPENTIN300 MG PO (14:39)
[2024-10-22] MEDS ORDERED: LOSARTAN POTAS100 MG PO (14:39)
[2024-10-22] MEDS ORDERED: DOCUSATE CALCI240 MG PO (14:39)
[2024-10-22] MEDS ORDERED: NIFEDIPINE ER30 M1 PO (14:39)
[2024-10-22] MEDS ORDERED: JANTOVEN5 MG PO ×2 (14:39)
[2024-10-22] MEDS ORDERED: PROTEINEX-18 LI30 ML PO (14:39)
[2024-10-22] MEDS ORDERED: LANTUS SOL100 UNIT/1 SUBCUTANEO (14:39)
[2024-10-22] MEDS ORDERED: AMIODARONE HCL200 MG PO (14:39)
[2024-10-22] MEDS ORDERED: LEVOTHYROXINE88 MCG PO (14:39)
[2024-10-22] MEDS ORDERED: INTEGRA F CAPS1 EACH PO (14:39)
[2024-10-22] MEDS ORDERED: WARFARIN SODIUM2 MG PO (14:39)
== END 2024-10-22 17:38 | disposition home or self-care (01) | DRG 535 ==
LOC: ER 11:39 → SURH 21:02 → ICU 10-17 05:11 → SURG 10-19 12:45
PROVIDERS: Emergency Medicine; Internal Medicine; Orthopaedic Surgery; ADMIT Internal Medicine; ATTEND Internal Medicine
PROC: BW28ZZZ Computerized Tomography (CT Scan) of Head (ICD-10-PCS; 2024-10-12)
PROC: 30233L1 Transfusion of Nonautologous Fresh Plasma into Peripheral Vein, Percutaneous Approach (ICD-10-PCS; 2024-10-13)
PROC: 30233K1 Transfusion of Nonautologous Frozen Plasma into Peripheral Vein, Percutaneous Approach (ICD-10-PCS; 2024-10-13)
PROC: 07DT0ZX Extraction of Bone Marrow, Open Approach, Diagnostic (ICD-10-PCS; 2024-10-14)
PROC: 0QS7XZZ Reposition Left Upper Femur, External Approach (ICD-10-PCS; principal; 2024-10-14 15:15)
PROC: 30233N1 Transfusion of Nonautologous Red Blood Cells into Peripheral Vein, Percutaneous Approach (ICD-10-PCS; 2024-10-16)
PROC: BW28ZZZ Computerized Tomography (CT Scan) of Head (ICD-10-PCS; 2024-10-17)
PROC: B24BZZZ Ultrasonography of Heart with Aorta (ICD-10-PCS; 2024-10-17)
PROC: 4A12X4Z Monitoring of Cardiac Electrical Activity, External Approach (ICD-10-PCS; 2024-10-19)
DX: S72.22XA Displaced subtrochanteric fracture of left femur, initial encounter for closed fracture (principal); I33.0 Acute and subacute infective endocarditis; G93.49 Other encephalopathy; D64.9 Anemia, unspecified; H60.8X1 Other otitis externa, right ear; E11.65 Type 2 diabetes mellitus with hyperglycemia; Z79.4 Long term (current) use of insulin; E03.9 Hypothyroidism, unspecified; J44.9 Chronic obstructive pulmonary disease, unspecified; E78.5 Hyperlipidemia, unspecified; Z86.711 Personal history of pulmonary embolism; I10 Essential (primary) hypertension; E66.9 Obesity, unspecified; I48.91 Unspecified atrial fibrillation; R41.82 Altered mental status, unspecified; W13.3XXA Fall through floor, initial encounter; Y93.9 Activity, unspecified; Y92.9 Unspecified place or not applicable

== ENCOUNTER 2024-11-30 09:22 | Emergency (ER) | payer OTHER ==
[~2024-11-30] VITALS: Ht 149.9 cm; Wt 81.6 kg
[~2024-11-30 09:22] MED LIST changes: +AMIODARONE HCL200 MG PO; +DOCUSATE CALCI240 MG PO; +GABAPENTIN300 MG PO; +INTEGRA F CAPS1 EACH PO; +JANTOVEN5 MG PO; +LANTUS SOL100 UNIT/1 SUBCUTANEO; +LEVOTHYROXINE88 MCG PO; +LOSARTAN POTAS100 MG PO; +NIFEDIPINE ER30 M1 PO; +PANTOPRAZOLE SO40 MG PO; +PROTEINEX-18 LI30 ML PO; +WARFARIN SODIUM2 MG PO
[2024-11-30 10:59] LABS: BASO % 0.4 % (0.1-1.2); EOS % 2.7 % (0.7-7.0); HEMATOCRIT 31.5 % (34.1-44.9); HEMOGLOBIN 10.2 g/dL (11.2-15.7); LYMPH # 1.65 (1.18-3.74); LYMPH % 22.6 % (19.3-53.1); MEAN CORPUSCULAR HEMOGLOBIN 28.7 pg (25.6-32.2); MONO # 0.85 (0.24-0.82); MONO % 11.6 % (4.7-12.5); NEUT # 4.56 (1.56-6.13); NEUT % 62.4 % (34.0-71.1); PLATELET COUNT 257 K/uL (163-369); RED BLOOD COUNT 3.56 M/uL (3.93-5.22); RED CELL DISTRIBUTION WIDTH 15.7 % (11.6-14.4)
[2024-11-30 11:16] LABS: ALBUMIN 2.8 gm/dL (3.4-5.0); BILIRUBIN TOTAL 1.13 mg/dL (0.3-1.2); CALCIUM 8.2 mg/dL (8.5-10.1); CREATININE SERUM 0.49 mg/dL (0.55-1.02); GFR 125.22; GLOBULINA 4.1 G/DL (2.4-3.5); POTASSIUM 3.35 mEq/L (3.5-5.1); TOTAL PROTEIN 6.9 gm/dL (6.4-8.2)
[2024-11-30 11:34] LABS: PARTIAL THROMBOPLASTIN TIME 71.7 SECONDS (22.0-34.0)
[2024-11-30 11:36] LABS: PROTHROMBIN TIME > 90.0 SECONDS (9.0-11.5)
[2024-11-30] MEDS ORDERED: ACETAMINOPHEN WITH CODEINE 1 UDTAB TABLET PO ONE ×2 (12:30→16:45)
[2024-11-30 13:56] LABS: D DIMER 0.32 MG/L
[2024-11-30] MEDS ORDERED: ENALAPRILAT DIHYDRATE 1.25 MG/ML VIAL IV ONE ×2 (17:37→17:45)
== END 2024-11-30 17:16 | disposition home or self-care (01) ==
LOC: ER 09:22
PROVIDERS: Emergency Medicine
DX: L03.115 Cellulitis of right lower limb (principal); M65.88 Other synovitis and tenosynovitis, other site; E11.9 Type 2 diabetes mellitus without complications; Z79.4 Long term (current) use of insulin; Z79.84 Long term (current) use of oral hypoglycemic drugs; I10 Essential (primary) hypertension; Z88.6 Allergy status to analgesic agent
CPT/HCPCS: 36415; 73503; 93005; 96365; 99283; J3490

== ENCOUNTER → 2025-03-30 | Emergency (ER) | payer OTHER ==
[~2025-03-30] VITALS: Ht 121.9 cm; Wt 81.6 kg
[~2025-03-30] MED LIST changes: +FAMOTIDINE/PF 20 MG/2 ML VIAL IV ONE; +FAMOTIDINE/PF 20 MG/2 ML VIAL ONE; +LABETALOL HCL 100 MG/20 ML ML IV ONE; +LABETALOL HCL 100 MG/20 ML ML ONE; +METOCLOPRAMIDE HCL 5 MG/ML VIAL IV ONE; +METOCLOPRAMIDE HCL 5 MG/ML VIAL ONE
[2025-03-30 15:45] LABS: BASO % 0.4 % (0.1-1.2); EOS # 0.02 (0.04-0.54); EOS % 0.2 % (0.7-7.0); LYMPH # 1.03 (1.18-3.74); LYMPH % 9.3 % (19.3-53.1); MEAN PLATELET VOLUME 10.20 fl (9.4-12.4); MONO # 0.63 (0.24-0.82); MONO % 5.7 % (4.7-12.5); NEUT # 9.37 (1.56-6.13); NEUT % 84.0 % (34.0-71.1); RED CELL DISTRIBUTION WIDTH 14.7 % (11.6-14.4)
[2025-03-30 16:09] LABS: ALT/SGPT 12.0 U/L (12-78); AST/SGOT 12.0 U/L (15-37); BILIRUBIN TOTAL 0.87 mg/dL (0.3-1.2); BUN CREA RATIO 16.0 (7.0-25.0); CREATININE SERUM 0.5 mg/dL (0.55-1.02); GFR 122.33; GLOBULINA 4.6 G/DL (2.4-3.5); OSMOLALITY SERUM 284.0 MOSM/KG (275-295)
[2025-03-30 16:18] LABS: GLUCOSE FASTING 279.0 mg/dL (65-100)
[2025-03-30 16:29] LABS: COVID-19 AG NEGATIVE (NEGATIVE)
[2025-03-30 16:45] LABS: URINE APPEARANCE Clear; URINE BILIRRUBIN Negative (NEGATIVE); URINE BLOOD Negative; URINE COLOR Yellow; URINE KETONE 15 (NEGATIVE); URINE LEUKOCYTE Trace; URINE NITRATE Negative; URINE PROTEIN Trace (NEGATIVE); URINE UROBILINOGEN 0.2 E.U./dl
[2025-03-30 16:50] LABS: URINE BACTERIA 149.9 uL (0.0-1933); URINE EPITHELIAL CELLS 5.3 uL (0.0-38.8); URINE RBC 23.1 uL (0.0-20.8); URINE WBC 120.3 uL (0.0-23.2)
[2025-03-30 17:17] LABS: TYPE CELLS RENAL TUBULAR; URINE CAST 0.14 uL (0.0-1.40); URINE GLUCOSE >=1000 MG/DL (NEGATIVE); URINE YEAST MANY /hpf
== END | disposition designated cancer center or children's hospital (05) ==
LOC: ER 13:38
PROVIDERS: Emergency Medicine
DX: G93.6 Cerebral edema (principal); I67.82 Cerebral ischemia; I62.00 Nontraumatic subdural hemorrhage, unspecified; R11.10 Vomiting, unspecified; R42 Dizziness and giddiness; R11.2 Nausea with vomiting, unspecified; Z20.822 Contact with and (suspected) exposure to COVID-19; I10 Essential (primary) hypertension; E03.8 Other specified hypothyroidism; E11.9 Type 2 diabetes mellitus without complications; Z79.84 Long term (current) use of oral hypoglycemic drugs; Z88.6 Allergy status to analgesic agent
CPT/HCPCS: 36415; 51702; 70450; 71045; 93005; 96365; 99285; J2765; J3490 ×3

== ENCOUNTER 2025-06-11 12:40 | Emergency (ER) | payer OTHER ==
[~2025-06-11] VITALS: Ht 149.9 cm; Wt 81.6 kg
[~2025-06-11 12:40] MED LIST changes: -FAMOTIDINE/PF 20 MG/2 ML VIAL IV ONE; -FAMOTIDINE/PF 20 MG/2 ML VIAL ONE; -LABETALOL HCL 100 MG/20 ML ML IV ONE; -LABETALOL HCL 100 MG/20 ML ML ONE; -METOCLOPRAMIDE HCL 5 MG/ML VIAL IV ONE; -METOCLOPRAMIDE HCL 5 MG/ML VIAL ONE
[2025-06-11] MEDS ORDERED: ONDANSETRON HCL 2 MG/ML VIAL IV STA (13:02)
[2025-06-11] MEDS ORDERED: FAMOTIDINE/PF 20 MG/2 ML VIAL IV STA (13:02)
[2025-06-11] MEDS ORDERED: ENALAPRILAT DIHYDRATE 1.25 MG/ML VIAL IV ONE ×2 (13:15→15:03)
[2025-06-11] MEDS ORDERED: FAMOTIDINE/PF 20 MG/2 ML VIAL ONE (15:03)
[2025-06-11] MEDS ORDERED: ONDANSETRON HCL 2 MG/ML VIAL ONE (15:03)
[2025-06-11 16:37] LABS: BASO % 0.7 % (0.1-1.2); EOS # 0.17 (0.04-0.54); EOS % 2.3 % (0.7-7.0); LYMPH # 2.52 (1.18-3.74); LYMPH % 34.7 % (19.3-53.1); MEAN PLATELET VOLUME 10.30 fl (9.4-12.4); MONO # 0.63 (0.24-0.82); MONO % 8.7 % (4.7-12.5); NEUT # 3.87 (1.56-6.13); NEUT % 53.3 % (34.0-71.1); RED CELL DISTRIBUTION WIDTH 13.5 % (11.6-14.4)
[2025-06-11 17:14] LABS: BUN CREA RATIO 22.0 (7.0-25.0); CREATININE SERUM 0.49 mg/dL (0.55-1.02); GFR 124.85; OSMOLALITY SERUM 291.0 MOSM/KG (275-295)
[2025-06-11 17:15] LABS: GLUCOSE FASTING 220.0 mg/dL (65-100)
[2025-06-11 17:20] LABS: INR 1.02
== END 2025-06-11 18:21 | disposition home or self-care (01) ==
LOC: ER 12:40
PROVIDERS: General Practice
DX: I16.0 Hypertensive urgency (principal); I10 Essential (primary) hypertension; Z88.6 Allergy status to analgesic agent
CPT/HCPCS: 36415; 93005; 96365; 99282; J2405; J3490 ×2